=== PATIENT | male | born 1960 | race Hispanic/Latino ===

== ENCOUNTER 2023-11-20 09:35 | Day surgery (SDC) | payer OTHER, MEDICARE ==
[2023-11-20] VITALS (14 sets, daily range): BP systolic 120–158; BP diastolic 60–91; PULSE 68–86; RESP 15–20
[~2023-11-20] VITALS: Ht 180.3 cm; Wt 117.9 kg
[~2023-11-20 09:35] MED LIST: INDOMETHACIN 100 MG SUPP.RECT RC ONE
[2023-11-20] MEDS ORDERED: METO-408 PO (10:34)
[2023-11-20] MEDS ORDERED: TAMS-1 PO (10:34)
[2023-11-20] MEDS ORDERED: LISI20TA24 PO (10:34)
[2023-11-20] MEDS ORDERED: FURO40TA5 PO (10:34)
[2023-11-20] MEDS ORDERED: NAPR-1023 PO (10:34)
[2023-11-20] MEDS ORDERED: SEMA3TAB4 PO (10:34)
[2023-11-20] MEDS ORDERED: ATOR40TA69 PO (10:34)
[2023-11-20] MEDS ORDERED: TICA90TA PO (10:34)
[2023-11-20] MEDS ORDERED: OMEP40CA21 PO (10:34)
[2023-11-20] MEDS ORDERED: METF-444 PO (10:34)
[2023-11-20] MEDS: 0.9%NACL 1000ML 1,000 ML IV ONE (10:35)
[2023-11-20] MEDS ORDERED: LIDOCAINE HCL 1% 20 ML VIAL ONE (11:12)
[2023-11-20] MEDS ORDERED: PROPOFOL 10 MG/ML 20ML VIAL IV ONE (11:12)
[2023-11-20] MEDS ORDERED: SUCCINYLCHOLINE CHLORIDE 20 MG/ML 10 ML VIAL ONE (11:12)
[2023-11-20] MEDS ORDERED: ONDANSETRON 4MG INJ ONE (11:30)
[2023-11-20] MEDS ORDERED: IOHEXOL-350 50ML VIAL IV ONE (12:06)
== END 2023-11-20 13:55 | disposition home or self-care (01) ==
LOC: DAH 09:35
PROVIDERS: ATTEND Internal Medicine Gastroenterology
DX: Z46.59 Encounter for fitting and adjustment of other gastrointestinal appliance and device (principal); K80.50 Calculus of bile duct without cholangitis or cholecystitis without obstruction; I10 Essential (primary) hypertension; E11.9 Type 2 diabetes mellitus without complications; E66.9 Obesity, unspecified; F41.9 Anxiety disorder, unspecified; F32.A Depression, unspecified; Z79.899 Other long term (current) drug therapy; Z68.35 Body mass index [BMI] 35.0-35.9, adult; Z79.84 Long term (current) use of oral hypoglycemic drugs
CPT/HCPCS: 43264; 43275; 43277; 74328; 74330; 82948; A4606; C1769; J0330; J2405; J2704; J7030; Q9967; A4215; A4221; A4222; A4223; A4663; A7002; J3490